=== PATIENT | male | born 1950 | race Native Hawaiian/Other Pacific Islander ===

== ENCOUNTER 2019-07-05 15:37 | Outpatient (CLI) | payer OTHER ==
[2019-07-05 15:59] LABS: PLATELET COUNT 514 K/uL (142-355)
[2019-07-05 16:09] LABS: POTASSIUM 4.5 mmol/L (3.6-5.2)
== END 2019-07-05 23:20 | disposition home or self-care (01) ==
LOC: LAB 15:37
PROVIDERS: Internal Medicine
DX: E11.65 Type 2 diabetes mellitus with hyperglycemia (principal); M62.81 Muscle weakness (generalized); N10 Acute pyelonephritis
CPT/HCPCS: 80053; 82550; 85027